=== PATIENT | male | born 1955 | race Caucasian/White ===

== ENCOUNTER 2021-03-14 09:17 | Day surgery (SDC) | payer MEDICARE, OTHER ==
[~2021-03-14] VITALS: Ht 177.8 cm; Wt 88.7 kg
[2021-03-14] MEDS ORDERED: METO25ER (09:57)
== END 2021-03-14 11:48 | disposition home or self-care (01) ==
LOC: ORSCSDS 09:17
DX: Z12.11 Encounter for screening for malignant neoplasm of colon (principal); D12.3 Benign neoplasm of transverse colon; D12.2 Benign neoplasm of ascending colon; K57.30 Diverticulosis of large intestine without perforation or abscess without bleeding; K64.8 Other hemorrhoids; I85.00 Esophageal varices without bleeding; K76.6 Portal hypertension; K31.89 Other diseases of stomach and duodenum; K74.60 Unspecified cirrhosis of liver; Z13.810 Encounter for screening for upper gastrointestinal disorder; I48.91 Unspecified atrial fibrillation; I10 Essential (primary) hypertension; N18.9 Chronic kidney disease, unspecified; E78.5 Hyperlipidemia, unspecified; G40.909 Epilepsy, unspecified, not intractable, without status epilepticus; Z79.899 Other long term (current) drug therapy; Z87.891 Personal history of nicotine dependence
CPT/HCPCS: 88305; 88342; J2405; J2704; J7120

== ENCOUNTER 2021-03-23 13:01 | Day surgery (SDC) | payer MEDICARE, OTHER ==
[~2021-03-23] VITALS: Ht 177.8 cm; Wt 88.1 kg
[~2021-03-23 13:01] MED LIST: METO25ER
[2021-03-23] MEDS ORDERED: LEVE500 (13:33)
[2021-03-23] MEDS ORDERED: GABA100 (13:34)
[2021-03-23] MEDS ORDERED: ASPI81CH (13:34)
[2021-03-23] MEDS ORDERED: Nadolol20 MG (13:35)
[2021-03-23] MEDS ORDERED: ROSU5 (13:36)
--- NOTE | 2021-03-23 14:56 | NUR ---
03/23/21 9034 Madai Carter PT. VERBALIZES HAVING A SORE THROAT & EPIGASTRIC PAIN. STATES "A LOT MORE PAINFUL THIS TIME THAN LAST TIME. PT. INSTRUCTED HE COULD HAVE SOME PAIN BUT SHOULD GET BETTER. PT. WAS GIVEN 50MCG IV FENTANYL PER ORDER, SEE VITALS FOR DOCUMENTATION. PT. DENIES NAUSEA. PT. ALSO INSTRUCTED THAT WOULD BE CALLING IN AN RX FOR PAIN MEDICATION FOR HIM.
== END 2021-03-23 15:51 | disposition home or self-care (01) ==
LOC: ORSCSDS 13:01
PROVIDERS: Internal Medicine Gastroenterology
PROC: 06L38CZ Occlusion of Esophageal Vein with Extraluminal Device, Via Natural or Artificial Opening Endoscopic (ICD-10-PCS; principal; 2021-03-23 14:30)
DX: I85.00 Esophageal varices without bleeding (principal); K76.6 Portal hypertension; K31.89 Other diseases of stomach and duodenum; B18.2 Chronic viral hepatitis C; K74.60 Unspecified cirrhosis of liver; I10 Essential (primary) hypertension; E78.5 Hyperlipidemia, unspecified; N18.9 Chronic kidney disease, unspecified; I48.91 Unspecified atrial fibrillation; G40.909 Epilepsy, unspecified, not intractable, without status epilepticus; Z79.899 Other long term (current) drug therapy; Z79.82 Long term (current) use of aspirin; Z87.891 Personal history of nicotine dependence
CPT/HCPCS: J2405; J2704; J3010; J7120

== ENCOUNTER 2022-01-01 07:54 | Day surgery (SDC) | payer MEDICARE, OTHER ==
[~2022-01-01] VITALS: Ht 177.8 cm; Wt 81.9 kg
[~2022-01-01 07:54] MED LIST changes: +ASPI81CH; +ELIQUIS5 M2 PO; +GABA100 PO; +LEVE500 PO; +Nadolol20 MG PO; +OMEP20ER PO; +ROSU5 PO
[2022-01-01] MEDS ORDERED: Inderal 20 mg T20 MG PO (08:54)
[2022-01-01] MEDS ORDERED: FERSU300 PO (08:54)
--- NOTE | 2022-01-01 09:52 | NUR ---
PT ADMITTED TO [facility]. AGREES WITH PLANNED SURGERY. LUNG SOUNDS CLEAR.
--- NOTE | 2022-01-01 19:30 | NUR ---
SHIFT SUMMARY PT A&OX4, VSS/RA, S/P R TKA, DRESSING CDI, POLAR BEHZAD/TEDS/SCDS ON. PAIN TREATED PER EMAR WITH TYLENOL, TORADOL AND OXY 5 MG. COURTNEY PO. VOIDING - INCONTINENT, ATTENDS ON; PT STATES IS NOT BASELINE; MOST LIKELY R/T ANESTHESIA AND WILL RESOLVE; URINAL AT BEDSIDE. IVF @ 70 MLS/HR. STAND PIVOT W/FWW & GB TO CHAIR FOR DINNER. REPORT PROVIDED TO CARLEEN MAE.
--- NOTE | 2022-01-02 04:14 | NUR ---
SHIFT SUMMARY: PT. AOX4, COMPLAINTS OF R KNEE PAIN MEDICATED PER EMAR. R KNEE INCISION WITH ACEWRAP ON, POLAR PACK PLACED. VOIDING WELL IN THE URINAL, ATTENDS PLACED PER PT'S REQUEST HE SAID HE DRIBBLES WITH URINATION. WILL TRY TO AMBULATE WHEN HE WAKES UP IN THE MORNING.ABLE TO MAKE NEEDS KNOWN, USES CALL LIGHT. NO ACUTE CHANGES NOTED.WILL CONTINUE TO MONITOR.
[2022-01-02 04:41] LABS: BASOPHILS PERCENT AUTO 0 % (0-2); EOSINOPHILS PERCENT AUTO 0 % (0-6); Hematocrit 39.7 % (37.0-53.0); Hemoglobin 13.4 g/dL (13.5-17.5); IMMATURE GRAN ABSOLUTE AUTO 0.02 K/mm3 (0.00-0.10); IMMATURE GRAN PERCENT AUTO 0 % (0-1); LYMPHOCYTES ABSOLUTE AUTO 0.39 K/mm3 (0.84-5.20); LYMPHOCYTES PERCENT AUTO 8 % (21-46); MONOCYTES PERCENT AUTO 6 % (4-13); Mean Corpuscular HGB 29.3 pg (26.0-34.0); Mean Corpuscular HGB Conc 33.8 g/dL (31.5-36.5); Mean Corpuscular Volume 87 fL (80-100); Mean Platelet Volume 10.6 fL (9.1-12.4); NEUTROPHILS ABSOLUTE AUTO 4.32 K/mm3 (1.96-9.15); NEUTROPHILS PERCENT AUTO 86 % (41-73); Platelet Count 98 K/mm3 (150-400); RDW Coefficient Variation 13.5 % (11.7-14.2); RDW Standard Deviation 42.9 fL (35.1-46.3); Red Blood Cell Count 4.57 M/mm3 (4.30-5.90); White Blood Cell Count 5.03 K/mm3 (4.00-11.30)
[2022-01-02 05:09] LABS: Bun/Creatinine Ratio 11.6 (12.0-20.0); Calcium, Blood 8.9 mg/dL (8.5-10.1); Creatinine, Blood 1.46 mg/dL (0.60-1.20); Potassium, Blood 4.6 mmol/L (3.5-5.5)
[2022-01-02] MEDS ORDERED: Percocet 5-3251 EACH PO (08:50)
--- NOTE | 2022-01-02 10:21 | NUR ---
DISCHARGE VSS, AMBULATING WELL W/ FWW & GB, CLEARED THERAPY THIS AM. PT DENIES PAIN THIS AM, SENT PERCOCET SCRIPT W/ PATIENT. DISCUSSED DISCHARGE INSTRUCTIONS W/ PATIENT, NO QUESTIONS FOR ME. SENT POLAR PACK AND X2 ACQUACELS W/ PATIENT. ESCORTED OUT VIA W/C.
== END 2022-01-02 10:21 | disposition home or self-care (01) ==
LOC: ORSCMMR 07:54 → ORD 09:45 → ORSCMMR 09:45 → SURS 13:51 → ORSCMMR 01-02 10:21
PROVIDERS: Orthopaedic Surgery
DX: M17.11 Unilateral primary osteoarthritis, right knee (principal); Z87.891 Personal history of nicotine dependence; I48.91 Unspecified atrial fibrillation; Z79.01 Long term (current) use of anticoagulants; K74.60 Unspecified cirrhosis of liver; E78.5 Hyperlipidemia, unspecified; Z86.73 Personal history of transient ischemic attack (TIA), and cerebral infarction without residual deficits; Z79.899 Other long term (current) drug therapy
CPT/HCPCS: 27447; S2900; 36415; 73560-RT; 80048; 85025; 97110; 97116; 97162; 97530; A9270; C1776; J0171; J0690; J0735; J1100; J1885; J2250; J2370; J2405; J2704; J2795; J3010; J7120

== ENCOUNTER 2024-12-07 10:09 | Day surgery (SDC) | payer MEDICARE ==
[~2024-12-07] VITALS: Ht 177.8 cm; Wt 73.0 kg
[~2024-12-07 10:09] MED LIST changes: +FERSU300 PO; +Inderal 20 mg T20 MG PO; +Lactated Ringer's 1,000 ML IV ONE; +Percocet 5-3251 EACH PO
[2024-12-07] MEDS ORDERED: Lactated Ringer's 1,000 ML IV ONE (10:29)
[2024-12-07] MEDS ORDERED: Lidocaine HCl 4% 5 ML SDA ONE (10:50)
[2024-12-07] MEDS ORDERED: propofoL 50 ML IV ONE ×2 (10:57→11:32)
[2024-12-07 12:31] VITALS: BP 117/75
== END 2024-12-07 12:30 | disposition home or self-care (01) ==
LOC: ORSCSDS 10:09
PROVIDERS: Internal Medicine Gastroenterology
PROC: 0DBN8ZX Excision of Sigmoid Colon, Via Natural or Artificial Opening Endoscopic, Diagnostic (ICD-10-PCS; principal; 2024-12-07 11:45)
PROC: 0D757ZZ Dilation of Esophagus, Via Natural or Artificial Opening (ICD-10-PCS; principal; 2024-12-07 11:45)
PROC: 0DJ08ZZ Inspection of Upper Intestinal Tract, Via Natural or Artificial Opening Endoscopic (ICD-10-PCS; principal; 2024-12-07 11:45)
DX: R13.10 Dysphagia, unspecified (principal); Z12.11 Encounter for screening for malignant neoplasm of colon; Z86.0101 Personal history of adenomatous and serrated colon polyps; K63.5 Polyp of colon; K57.30 Diverticulosis of large intestine without perforation or abscess without bleeding; E78.5 Hyperlipidemia, unspecified; Z86.73 Personal history of transient ischemic attack (TIA), and cerebral infarction without residual deficits; I48.91 Unspecified atrial fibrillation; Z79.01 Long term (current) use of anticoagulants; Z79.899 Other long term (current) drug therapy; Z86.19 Personal history of other infectious and parasitic diseases; K74.60 Unspecified cirrhosis of liver
CPT/HCPCS: 88305; J2003; J2704; J7120